=== PATIENT | female | born 1940 | race Caucasian/White ===

== ENCOUNTER 2017-05-07 12:19 | Inpatient (IN) | payer MEDICARE, OTHER ==
--- NOTE | ~2017-05-07 | EGD ---
EGD REPORT [facility] [address] [place]. [address] NAME: RODERICK COLE : 40 STATUS : ADM IN PAT#: [id number] AGE: 77 ADM/REG DATE : 05/07/17 MR#: [id number] REPORT SERV DATE: 05/10/17 DICTATED BY: KAILEY ARAUJO DATE: 05/10/17 REPORT STATUS : Draft TRANSCRIBED BY: [employer] DATE: 05/10/17 [facility]oscopy Center Patient Name: Roderick Cole Date of : 1940 Attending MD: KAILEY ARAJUO, Procedure Date No Time: 05/10/2017 Procedure: Upper GI endoscopy Indications: Anemia, Heme positive stool Referring MD: JIGNA DUCKWORTH Medicines: Propofol per Anesthesia Complications: No immediate complications. Estimated blood loss: None. Procedure: Pre-Anesthesia Assessment: - ASA Grade Assessment: III - A patient with severe systemic disease. After obtaining informed consent, the endoscope was passed under direct vision. Throughout the procedure, the patient's blood pressure, pulse, and oxygen saturations were monitored continuously. The GIF [id number] was introduced through the mouth, and advanced to the second part of duodenum. The upper GI endoscopy was accomplished with ease. The patient tolerated the procedure well. Findings: A hiatus hernia was present. The Z-line was found 36 cm from the incisors. Localized mild inflammation characterized by linear erosions was found in the gastric body. No biopsies or other specimens were collected for this exam. Estimated blood loss: none. Multiple 3 to 5 mm sessile polyps were found in the gastric fundus and in the gastric body. No biopsies or other specimens were collected for this exam. The duodenal bulb and 2nd part of the duodenum were normal. No biopsies or other specimens were collected for this exam. Impression: - Hiatus hernia. - Z-line 36 cm from the incisors. - Gastritis. No specimens collected. - Multiple gastric polyps. No specimens collected. - Normal duodenal bulb and 2nd part of the duodenum. No specimens collected. Recommendation: - Return patient to hospital day for ongoing care. - Perform a colonoscopy. - Continue present medications. EGD REPORT [address] [place]. [address] NAME: RODERICK COLE : 40 STATUS : ADM IN [facility]#: [id number] AGE: 77 ADM/REG DATE : 05/07/17 MR#: [id number] REPORT SERV DATE: 05/10/17 DICTATED BY: KAILEY ARAUJO DATE: 05/10/17 REPORT STATUS : Draft TRANSCRIBED BY: [employer] FRANDY DATE: 05/10/17 - No aspirin, ibuprofen, naproxen, or other non-steroidal anti-inflammatory drugs. - Use Protonix (pantoprazole) 40 mg PO daily. - Regular diet. Procedure Code(s): --- Professional --- 91668, Esophagogastroduodenoscopy, flexible, transoral; diagnostic, including collection of specimen(s) by brushing or washing, when performed (separate procedure) Diagnosis Code(s): --- Professional --- K44.9, Diaphragmatic hernia without obstruction or gangrene K29.70, Gastritis, unspecified, without bleeding K31.7, Polyp of stomach and duodenum D64.9, Anemia, unspecified R19.5, Other fecal abnormalities CPT copyright 2013 [employer]. All rights reserved. The codes documented in this report are preliminary and upon superintendent maintenance review may be revised to meet current compliance requirements. KAILEY ARAUJO, 05/10/2017 10:29 AM This report has been signed electronically. Number of Addenda: 0 Note Initiated On: 05/10/2017 10:16 AM Scope Withdrawal Time 0 hours 0 minutes 0 seconds [address] [place] [address]
--- NOTE | ~2017-05-07 | HP ---
History And Physical [place] [id number] [facility] [place]. [address] NAME: RODERICK WESLEY : [birth year] STATUS : ADM IN [facility]#: [id number] AGE: 77 ADM/REG DATE : 05/07/17 MR#: [id number] REPORT SERV DATE: 05/07/17 DICTATED BY: BRETT BURCH DATE: 05/07/17 REPORT STATUS : Draft TRANSCRIBED BY: MODAiram DATE: 05/07/17 DATE OF ADMISSION: 05/07/2017 HISTORY OF PRESENT ILLNESS: This is a 77-year-old female, who comes in for left leg swelling. The patient is a relatively healthy individual. Denies any heart, lung, brain problems. She went to [place] in early part of April and drove over there from this area to [place]. The patient said that they stopped along the way when they felt like it, but it took more than 10 hours to get there. During that trip, several of her family members had GI symptoms with nausea, vomiting, diarrhea, and abdominal pain. It seems to be self- limited and they got better. The patient then drove the way back here. Since that time, she started having some weakness and she started noting some left leg swelling. She went to her PCP about two weeks prior to admission, where she was found to be anemic. She was started on iron pills and was given guaiac cards. The patient did not note of any hematochezia or melena, and she said that her stool is brown and there is no diarrhea. She does not know the results of the guaiac cards, and she does not know what her counts are for anemia. The patient's then got admitted, and she stayed with him during the admission. While she was in her 's room in the fifth floor of the [facility], the nurse noted that she has a swollen left leg, and she went down to the emergency room. In the ER, they did an ultrasound, which showed extensive left lower extremity DVT extending from the common femoral vein into the greater saphenous vein and below the knee into the peroneal and posterior tibial veins. The ER now calls me for admission. The patient admits to having poor p.o. intake and some weakness, but she attributes it to the stress that she has been having taking care of her in the hospital. She has some nausea, but no vomiting. She denies any active bleeding anywhere. No urinary symptoms. No cough or shortness of breath. No chest pain. She does have some dull ache on the left lower extremity. No near syncopal or syncopal episode and the rest of the 14-point review of systems is negative, except as above. PAST MEDICAL HISTORY: Includes parathyroidectomy, 2/; several basal cell carcinomas removed in the chest area; two back surgeries, care of Dr. Lauren. She did admit that she had an EGD in the past showing some hiatal hernia and a colonoscopy in the past showing only internal hemorrhoids, this was done in [place] more than 10 years ago. The patient has GERD, partial hysterectomy and a tumor removed from her left breast, which was benign, and cholecystectomy. She is an ex-smoker as well. ALLERGIES: SHE HAS NO KNOWN DRUG ALLERGIES. MEDICATIONS: Include aspirin, calcium, Colace, iron, Neurontin, Dumont, Prevacid, fish oil. FAMILY HISTORY: Positive for cancer. Negative for diabetes, heart disease, or lung disease. SOCIAL HISTORY: The patient does not smoke, drink, or use recreational drugs. PHYSICAL EXAMINATION: GENERAL: The patient is alert and oriented x3, not in cardiopulmonary distress. VITAL SIGNS: Include a temperature of 98, pulse rate of 104, respirations of 18, saturating History And Physical [address] [address] NAME: RODERICK WESLEY : 40 STATUS : ADM IN [facility]#: [id number] AGE: 77 ADM/REG DATE : 05/07/17 MR#: [id number] REPORT SERV DATE: 05/07/17 DICTATED BY: BRETT BURCH DATE: 05/07/17 REPORT STATUS : Draft TRANSCRIBED BY: MODAiram DATE: 05/07/17 at 98% on room air, blood pressure of 152/66. NECK: She has supple neck. No JVD or carotid bruit. No lymphadenopathy. HEENT: [place] conjunctivae. Anicteric sclerae. No pharyngeal erythema. LUNGS: Clear lungs. No rales. No wheezes. CARDIOVASCULAR: Regular rate and rhythm, but tachycardia. No murmurs appreciated. ABDOMEN: Positive bowel sounds. Soft and nontender. No masses. EXTREMITIES: Fair pulses. There is edema on the left lower extremity. No open wound. No tenderness. No erythema. LABORATORY DATA: Reveals a BUN and creatinine of 21 and 1.29, rest of the chemistry is within normal limits. H and H of 7.1 and 24.8 with an MCV of 70.1. INR of 1.2. ASSESSMENT: 1. Left lower extremity deep vein thrombosis. 2. Microcytic anemia with possible GI bleed with history of gastroesophageal reflux disease and hiatal hernia. 3. Possible chronic kidney disease 3. PLAN: The patient does not give a convincing story of a big GI bleed. However, with her positive guaiac and microcytic anemia, we would need to get a GI consult and possible scope. I would also get Vascular Surgery as we might need a Chandana filter and a localized thrombectomy. We will monitor H and H, transfuse as needed. Monitor creatinine. Hold aspirin. I discussed with her the pros and cons of the heparin drip, and we both decided that it might be more advantageous to start the heparin drip right now. If she starts having more anemia or some bleeding, we will stop that and transfuse her. This has been explained to her, and she agreed and understood the plan. HODAN/VALE Brett Burch M.D. / [id number] CC: Robert Plasencia M.D.
--- NOTE | ~2017-05-07 | EHP ---
ER History and Physical [place] [address] [facility] [place]. [address] NAME: RODERICK CAN : 40 STATUS : ADM IN PAT#: [id number] AGE: 77 ADM/REG DATE : 05/07/17 MR#: [id number] REPORT SERV DATE: 05/07/17 DICTATED BY: CHELITA MORA DATE: 05/07/17 REPORT STATUS : Draft TRANSCRIBED BY: MODL DATE: 05/07/17 REASON FOR CONSULT: Left leg DVT. HISTORY: The patient is a 77-year-old white female, who endorses swelling for approximately the last three to four weeks. She did have a long car ride that she underwent in early April, had some swelling around that time. The swelling recently got worse. She was in the hospital for a family member and was noted to have a swollen leg, was sent down to the ER for further evaluation and found to have extensive DVT. She denies chest pain or shortness of breath. She denies history of DVT in the past. She denies any cheikh overt bleeding from any orifice. PAST MEDICAL HISTORY: Includes negative history of hypertension, renal disease, diabetes. PAST SURGICAL HISTORY: Includes parathyroidectomy as well as several basal cell carcinomas removed and she has had two back surgeries with Dr. Lauren. ALLERGIES: SHE HAS NO ALLERGIES. MEDICATIONS: Are listed in our MAR. She is not currently on any anticoagulation as an outpatient. She is on a heparin drip here as an inpatient. FAMILY HISTORY: Positive for cancer. SOCIAL HISTORY: She does not currently abuse tobacco. PHYSICAL EXAMINATION: VITAL SIGNS: Blood pressure is 155/68, heart rate is 94, respirations 18. GENERAL APPEARANCE: She is in no distress. Her pupils are equally round and reactive to light. HEENT: Her head is normocephalic, atraumatic. NECK: Supple without JVD or lymphadenopathy. CHEST: Has equal expansion bilaterally with good respiratory movement. ABDOMEN: Soft, nontender, nondistended without any obvious masses. CARDIOVASCULAR: Regular rate and rhythm. Peripheral pulses are palpable x4. She does have swelling throughout the left lower extremity, greater below the knee than above the knee. All compartments are soft and easily compressible. There is no sign of phlegmasia or compartment syndrome. LABORATORY DATA: Her creatinine is 1.29; her hematocrit is 25, this is up from earlier at 24.8. She does have a history of having microcytic anemia being worked up as an outpatient. Imaging evaluation includes ultrasound, which demonstrated DVT from the common femoral down through the saphenous vein and into the tibial veins. IMPRESSION AND PLAN: Ms. Can is 77 years with left leg deep vein thrombosis of approximately three weeks to four weeks' duration. She is currently on a heparin drip for the DVT. We will see how her hematocrit holds up. She is getting GI evaluation for her microcytic anemia. If her GI bleeding worsens or is exacerbated, she certainly will require ER History and Physical [address] [address] NAME: RODERICK CAN : 40 STATUS : ADM IN [facility]#: [id number] AGE: 77 ADM/REG DATE : 05/07/17 MR#: [id number] REPORT SERV DATE: 05/07/17 DICTATED BY: CHELITA MORA DATE: 05/07/17 REPORT STATUS : Draft TRANSCRIBED BY: VALE DATE: 05/07/17 IVC filter if she has to come off anticoagulation. Otherwise, there is no indication for surgical treatment of the clot at this time. Her left leg does not have phlegmasia and the clot is of three to four weeks' duration, which makes it more difficult to remove percutaneously. I will follow with her while she is here to see how her anticoagulation and her hematocrit do. BRIAN/VALE Chelita Mora MD / [id number] CC: Franco Harris M.D. JIGNA DUCKWORTH
--- NOTE | ~2017-05-07 | EGD ---
EGD REPORT [facility] [address] [place]. [address] NAME: RODERICK COLE : 40 STATUS : ADM IN PAT#: [id number] AGE: 77 ADM/REG DATE : 05/07/17 MR#: [id number] REPORT SERV DATE: 05/10/17 DICTATED BY: KAILEY ARAUJO DATE: 05/10/17 REPORT STATUS : Draft TRANSCRIBED BY: [employer] DATE: 05/10/17 Endoscopy Center Patient Name: Roderick Cole Date of : 1940 Attending MD: KAILEY ARAUJO, Procedure Date No Time: 05/10/2017 Procedure: Colonoscopy Indications: Heme positive stool, Anemia Referring MD: JIGNA DUCKWORTH Medicines: Propofol per Anesthesia Complications: No immediate complications. Estimated blood loss: None. Procedure: Pre-Anesthesia Assessment: - ASA Grade Assessment: III - A patient with severe systemic disease. After I obtained informed consent, the scope was passed under direct vision. Throughout the procedure, the patient's blood pressure, pulse, and oxygen saturations were monitored continuously. The CF [id number] was introduced through the anus and advanced to the cecum, identified by appendiceal orifice and ileocecal valve. The colonoscopy was performed with ease. The patient tolerated the procedure well. The quality of the bowel preparation was good. Findings: A few small-mouthed diverticula were found in the sigmoid colon. The exam was otherwise without abnormality on direct and retroflexion views. Impression: - Diverticulosis in the sigmoid colon. - The examination was otherwise normal on direct and retroflexion views. Recommendation: - Return patient to hospital day for ongoing care. - Regular diet. - Continue present medications. Procedure Code(s): --- Professional --- 29396, Colonoscopy, flexible, proximal to splenic flexure; diagnostic, with or without collection of specimen(s) by brushing or washing, with or without colon decompression (separate procedure) Diagnosis Code(s): --- Professional --- K57.30, Diverticulosis of large intestine without EGD REPORT [facility] [address] [place] [address]. [address] NAME: RODERICK COLE : 40 STATUS : ADM IN [facility]#: [id number] AGE: 77 ADM/REG DATE : 05/07/17 MR#: [id number] REPORT SERV DATE: 05/10/17 DICTATED BY: KAILEY ARAUJO DATE: 05/10/17 REPORT STATUS : Draft TRANSCRIBED BY: [facility] DATE: 05/10/17 perforation or abscess without bleeding R19.5, Other fecal abnormalities D64.9, Anemia, unspecified CPT copyright 2013 [employer]. All rights reserved. The codes documented in this report are preliminary and upon cpc coder review may be revised to meet current compliance requirements. KAILEY ARAUJO, 05/10/2017 10:53 AM This report has been signed electronically. Number of Addenda: 0 Note Initiated On: 05/10/2017 10:13 AM Scope Withdrawal Time 0 hours 9 minutes 1 second [id number] [address]
--- NOTE | ~2017-05-07 | DS ---
Discharge Summary [facility] [address] [place]. [address] NAME: RODERICK WESLEY : 40 STATUS : DIS IN PAT#: [id number] AGE: 77 ADM/REG DATE : 05/07/17 MR#: [id number] REPORT SERV DATE: 05/12/17 DICTATED BY: DEJUAN EVANS DATE: 05/11/17 REPORT STATUS : Draft TRANSCRIBED BY: MODL DATE: 05/11/17 ADMISSION DATE: 05/07/2017 DISCHARGE DATE: 05/11/2017 DISCHARGE DIAGNOSES: 1. Extensive left lower extremity deep vein thrombosis. 2. Iron deficiency anemia with iron 15, TIBC 414, ferritin 11. 3. Hemoccult positive stool with upper GI endoscopy, 05/10/2017, Dr. Tineo, showing hiatal hernia, gastritis, multiple gastric polyps, and normal duodenal bulb and second part of duodenum. Colonoscopy 05/10/2017, Dr. Tineo, demonstrating diverticulosis. 4. Acute kidney injury, present on admission, resolved. 5. Chronic pain syndrome related to two previous back surgeries. 6. History of hyperparathyroidism, status post parathyroidectomy. 7. History of basal cell carcinomas. 8. History of gastroesophageal reflux disease. OPERATIVE PROCEDURES: None. PRESENT ILLNESS: This is a 77-year-old white female who was triaged in the emergency room on 05/07/2017 at 0959 hours, complaining of left lower extremity swelling and pain of 3 weeks' duration. Her ER evaluation included a CBC, which was abnormal for hemoglobin of 7.1. In addition, a left lower extremity ultrasound was performed, which showed extensive left lower extremity DVT extending from the common femoral vein into the greater saphenous vein and below-knee into the peroneal and posterior tibial veins. She was referred to the Hospitalist Service for admission. She was seen by Dr. Minh Irizarry and admitted as described on admission history and physical examination. ADDITIONAL HISTORY: Per Dr. Irizarry. PHYSICAL EXAMINATION: Per Dr. Irizarry. ADMISSION LABORATORY: Per Dr. Irizarry. HOSPITAL COURSE: She was admitted by Dr. Iriazrry with: 1. Left lower extremity DVT. 2. Microcytic anemia with possible GI bleed and a remote history of gastroesophageal reflux disease and hiatal hernia. 3. Possible chronic kidney disease. On admission, she was started on heparin. GI consultation was obtained. Vascular Surgery consultation was obtained. She was seen by Dr. Rohith Tabares, who recommended upper GI endoscopy and colonoscopy. Discharge Summary [facility] [address] [place]. [address] NAME: RODERICK WESLEY : 40 STATUS : DIS IN PAT#: [id number] AGE: 77 ADM/REG DATE : 05/07/17 MR#: [id number] REPORT SERV DATE: 05/12/17 DICTATED BY: DEJUAN EVANS DATE: 05/11/17 REPORT STATUS : Draft TRANSCRIBED BY: VALE DATE: 05/11/17 She was seen by Dr. Stephen Mora. He did not think that she needed an IVC filter unless she had worsening gastrointestinal bleeding or if she had to stop anticoagulation for some other reason. He also did not think there was indication for surgical treatment as she did not have phlegmasia and her clot was likely of 3 to 4 weeks' duration. With heparin anticoagulation, she did not have any evident gastrointestinal bleeding. Her hemoglobin which was 7.1 on admission, fell to 6.7. She received 2 units of packed red blood cells on 05/08/2017, and her hemoglobin increased to 10 with subsequent hemoglobins being 9.3, 9.3, and 9.9. On 05/10/2017, she was taken to the GI lab where the above-mentioned procedures were performed. PPI therapy was recommended. NSAIDs were proscribed. There were no complications with the procedure. Her diet was advanced, which she tolerated well. Her creatinine was 1.29 on admission, increased to 1.31, it was 0.99 at discharge. She was seen by Dr. Irizarry through 05/10/2017. She was seen by the undersigned today. She was asymptomatic. She thought she could manage at home. She is being discharged home to be seen by her primary care physician, Dr. Shayne Ortega next week. I suggested to her that she have age-appropriate cancer screening in the outpatient setting to include a pelvic exam. I also suggested that if she had not had a recent chest x ray, this should be pursued with consideration of a CT chest given her smoking history and DVT presentation. We discussed her current anticoagulation which is Xarelto. She was advised if she had any mucosal bleeding, she would need to have a site-specific evaluation and she should contact her primary care physician. If her hemoglobin is not iron responsive or she has further gastrointestinal bleeding, she will need to have further GI evaluation including capsule endoscopy, etc. She will continue her home diet and activity. DISCHARGE MEDICATIONS: Pending outpatient followup: Neurontin 300 mg twice daily; [place] 7.5/325 twice daily; fish oil 1000 mg twice daily; Xarelto 15 mg twice daily for 21 days, then 20 mg daily; Os-Nikolai plus D 500 mg daily; Prevacid 30 mg daily; Colace 200 mg at bedtime; 200 mg twice daily. Discharge time, greater than 30 minutes. DICTATED BY: Dejuan Evans M.D. Discharge Summary [place] [id number] [place]. [address] NAME: RODERICK WESLEY : 40 STATUS : DIS IN PAT#: [id number] AGE: 77 ADM/REG DATE : 05/07/17 MR#: [id number] REPORT SERV DATE: 05/12/17 DICTATED BY: DEJUAN EVANS DATE: 05/11/17 REPORT STATUS : Draft TRANSCRIBED BY: VALE DATE: 05/11/17 DD/VALE Dejuan Evans M.D. / [id number] CC: Robert Ray M.D. Camille Sommer, MD
--- NOTE | ~2017-05-07 | CN ---
Consultation Report [facility] [address] [place]. [address] NAME: RODERICK WESLEY : 40 STATUS : ADM IN PAT#: [id number] AGE: 77 ADM/REG DATE : 05/07/17 MR#: [id number] REPORT SERV DATE: 05/08/17 DICTATED BY: ROHITH TABARES DATE: 05/08/17 REPORT STATUS : Draft TRANSCRIBED BY: MODL DATE: 05/08/17 CONSULTATION DATE OF CONSULTATION: 05/08/2017 INDICATION: The patient is presenting with severe anemia with guaiac-positive stool. HISTORY OF PRESENT ILLNESS: The patient is a 77-year-old female, who has been experiencing left leg swelling for the last three weeks with cramps, dullness, and heaviness. Right leg was entirely normal. She ambulates well at home. Prior to this incident her walking has decreased because of the discomfort. The patient denies any melena, hematochezia, or hematemesis. There was some history of weakness. When she presented to the hospital, the patient was found to be anemic with guaiac-positive stool. Heparin has been started to treat the DVT which was detected on exam. PAST MEDICAL HISTORY: Gastroesophageal reflux disease. PAST SURGICAL HISTORY: Several basal cell carcinoma removed from the chest area, two back surgeries, partial hysterectomy, tumor removed from left breast, and cholecystectomy. MEDICATIONS: See MAR. PHYSICAL EXAMINATION: GENERAL: Well-developed, well-nourished female, in no acute distress. VITAL SIGNS: Temperature is 97.1, blood pressure 138/65, pulse of 83. HEENT: Head is normocephalic and atraumatic. Throat is clear. LUNGS: Clear. HEART: S1 and S2 without murmurs, gallops, or rubs. ABDOMEN: Normoactive bowel sounds. Soft, nondistended, and nontender. EXTREMITIES: Moderate swelling of the left leg with 2+ edema. Right leg appears normal. LABORATORY DATA: WBC of 6.4, H and H of 6.7 and 23.4, platelet count 391. Currently, the patient is receiving packed red blood cells. Sodium 143, potassium 3.9, BUN 17, creatinine 1.3. Ferritin level is 11, iron 15, and TIBC 414. IMPRESSION: The patient with iron deficiency anemia with guaiac-positive stool, now on heparin drip. PLAN: We will proceed with panendoscopy and colonoscopy on Wednesday. Stop the heparin eight hours prior to procedure. HP/MODL Consultation Report [place] [id number] [place] [address] [address] NAME: RODERICK WESLEY : 40 STATUS : ADM IN PAT#: [id number] AGE: 77 ADM/REG DATE : 05/07/17 MR#: [id number] REPORT SERV DATE: 05/08/17 DICTATED BY: ROHITH TABARES DATE: 05/08/17 REPORT STATUS : Draft TRANSCRIBED BY: VALE DATE: 05/08/17 Rohith Tabares M.D. / [id number] CC: Robert Plasencia M.D.
[2017-05-07 11:31] LABS: BASOPHILS 0.5 %; BASOPHILS ABSOLUTE 0.03 10/3/uL (0.0-0.16); EOSINOPHILS 3.7 %; EOSINOPHILS ABSOLUTE 0.24 10/3/uL (0.0-0.53); HEMATOCRIT 24.8 % (36.0-48.0); HEMOGLOBIN 7.1 g/dL (12.0-16.0); IMMATURE GRANULOCYTES 0.3 %; IMMATURE GRANULOCYTES ABSOLUTE 0.02 10/3/uL (0.0-0.11); LYMPHOCYTES 24.5 %; LYMPHOCYTES ABSOLUTE 1.57 10/3/uL (0.67-4.30); MEAN CORPUS HGB CONC 28.6 g/dL (32.0-36.0); MEAN CORPUSCULAR HEMOGLOB 20.1 pg (26.0-34.0); MEAN CORPUSCULAR VOLUME 70.1 fL (80-100); MONOCYTES 7.3 %; MONOCYTES ABSOLUTE 0.47 10/3/uL (0.21-1.20); NEUTROPHILS 63.7 %; NEUTROPHILS ABSOLUTE 4.08 10/3/uL (2.02-8.40); RED CELL COUNT 3.54 10/6/uL (4.0-5.6); WHITE BLOOD CELLS 6.4 10/3/uL (4.5-10.5)
[2017-05-07 11:32] LABS: MANUAL DIFF NO %; PLATELET COUNT 391 10/3/uL (150-400); RBC DISTRIBUTION WIDTH 19.1 % (12.0-16.0)
[2017-05-07 11:40] LABS: INTERNATIONAL NORMAL RATI 1.2 UNITS (-); PARTIAL THROMBO TIME 28.5 SEC (22.5-37.2); PROTIME (NOT ORD) 14.7 SEC (12.0-14.5)
[2017-05-07 11:48] LABS: ALBUMIN 3.6 G/DL (3.5-5.0); ALKALINE PHOSPHATASE 79 U/L (45-117); BUN (BLOOD UREA NITROGEN) 21 MG/DL (6-23); CALCIUM, SERUM 8.5 MG/DL (8.5-10.4); CHLORIDE, SERUM 110 MMOL/L (96-112); CO2 (CARBON DIOXIDE) 25 MMOL/L (24-34); CREATININE 1.29 MG/DL (0.55-1.02); GFR AFRICAN AMERICAN 46 ML/MIN (>=60); GFR NON AFRICAN AMERICAN 40 ML/MIN (>=60); GLOBULIN 3.7 G/DL (2.5-4.1); GLUCOSE, SERUM 124 MG/DL (60-99); POTASSIUM, SERUM 3.9 MMOL/L (3.5-5.3); SGOT(AST) 14 U/L (5-40); SGPT(ALT) 16 U/L (5-65); SODIUM, SERUM 144 MMOL/L (135-148); TOTAL BILIRUBIN 0.2 MG/DL (0-1.2); TOTAL PROTEIN 7.3 G/DL (6.0-8.5)
[2017-05-07 11:53] LABS: ANISOCYTOSIS 1+ (5-10/OIF) (0-5/OIF); HYPOCHROMIA 3+ (>30/OIF) (0-2/OIF); PLATELET ESTIMATE ADQ (ADEQUATE)
[2017-05-07 11:54] LABS: ELLIPTOCYTES 1+ (3-10/OIF) (0-2/OIF); POIKILOCYTOSIS 1+ (5-10/OIF) (0-5/OIF)
[~2017-05-07 12:19] MED LIST: ASAB PO; FISH-EPA1000 MG PO; FOSAMAX70 MG PO; LIOR10 PO; MSCONT15 PO; NASONEX NAS; NEUR300 PO; OS500+D PO; PCET PO; PREV30 PO; ULTRAM50 PO; V5 PO; VITAMIN D PO; VITAMIN D31000 UNIT PO
[2017-05-07] MEDS ORDERED: OS500+D PO (12:34)
[2017-05-07] MEDS ORDERED: PREV30 PO (12:36)
[2017-05-07] MEDS ORDERED: NORCO1 TA2 PO (12:37)
[2017-05-07] MEDS ORDERED: FISH-EPA1000 MG PO (12:37)
[2017-05-07] MEDS ORDERED: EZFE 200200 MG PO (12:38)
[2017-05-07] MEDS ORDERED: NEUR300 PO (12:38)
[2017-05-07] MEDS ORDERED: HALF81 PO (12:38)
[2017-05-07] MEDS ORDERED: DSS PO (12:38)
[2017-05-07 16:36] LABS: HEMATOCRIT 25.3 % (36.0-48.0); HEMOGLOBIN 7.1 g/dL (12.0-16.0); RETICULOCYTE COUNT 1.9 % (0.5-2.5); RETICULOCYTE COUNT ABSOLUTE 69.1 10/3/uL (20.2-119.8)
[2017-05-07 16:50] LABS: PHOSPHORUS, SERUM 2.6 MG/DL (2.5-4.5)
[2017-05-08 05:14] LABS: HEMATOCRIT 23.4 % (36.0-48.0)
[2017-05-08 05:15] LABS: HEMOGLOBIN 6.7 g/dL (12.0-16.0)
[2017-05-08 05:27] LABS: CALCIUM, SERUM 8.4 MG/DL (8.5-10.4); CHLORIDE, SERUM 111 MMOL/L (96-112); CO2 (CARBON DIOXIDE) 23 MMOL/L (24-34); CREATININE 1.31 MG/DL (0.55-1.02); GFR AFRICAN AMERICAN 45 ML/MIN (>=60); GFR NON AFRICAN AMERICAN 39 ML/MIN (>=60); POTASSIUM, SERUM 3.9 MMOL/L (3.5-5.3); SODIUM, SERUM 143 MMOL/L (135-148)
[2017-05-08 05:30] LABS: BUN (BLOOD UREA NITROGEN) 17 MG/DL (6-23); GLUCOSE, SERUM 97 MG/DL (60-99)
[2017-05-08 05:32] LABS: PARTIAL THROMBO TIME 130.7 SEC (22.5-37.2)
[2017-05-08 18:58] LABS: HEMATOCRIT 32.2 % (36.0-48.0)
[2017-05-09 01:33] LABS: HEMATOCRIT 30.6 % (36.0-48.0); HEMOGLOBIN 9.3 g/dL (12.0-16.0)
[2017-05-10 03:36] LABS: BASOPHILS 0.5 %; BASOPHILS ABSOLUTE 0.04 10/3/uL (0.0-0.16); EOSINOPHILS 3.4 %; EOSINOPHILS ABSOLUTE 0.25 10/3/uL (0.0-0.53); HEMATOCRIT 31.6 % (36.0-48.0); HEMOGLOBIN 9.3 g/dL (12.0-16.0); IMMATURE GRANULOCYTES 0.3 %; IMMATURE GRANULOCYTES ABSOLUTE 0.02 10/3/uL (0.0-0.11); LYMPHOCYTES 44.3 %; LYMPHOCYTES ABSOLUTE 3.26 10/3/uL (0.67-4.30); MEAN CORPUS HGB CONC 29.4 g/dL (32.0-36.0); MEAN PLATELET VOLUME 9.1 fL (9.2-13.0); MONOCYTES 7.9 %; MONOCYTES ABSOLUTE 0.58 10/3/uL (0.21-1.20); NEUTROPHILS 43.6 %; NEUTROPHILS ABSOLUTE 3.21 10/3/uL (2.02-8.40); PLATELET COUNT 352 10/3/uL (150-400); RBC DISTRIBUTION WIDTH 20.6 % (12.0-16.0); RED CELL COUNT 4.13 10/6/uL (4.0-5.6); WHITE BLOOD CELLS 7.4 10/3/uL (4.5-10.5)
[2017-05-10 03:38] LABS: MANUAL DIFF NO %; MEAN CORPUSCULAR HEMOGLOB 22.5 pg (26.0-34.0); MEAN CORPUSCULAR VOLUME 76.5 fL (80-100)
[2017-05-10 03:46] LABS: PARTIAL THROMBO TIME 109.3 SEC (22.5-37.2)
[2017-05-10 03:50] LABS: CHLORIDE, SERUM 114 MMOL/L (96-112); CO2 (CARBON DIOXIDE) 26 MMOL/L (24-34); CREATININE 0.99 MG/DL (0.55-1.02); GFR AFRICAN AMERICAN 64 ML/MIN (>=60); GFR NON AFRICAN AMERICAN 55 ML/MIN (>=60); GLUCOSE, SERUM 93 MG/DL (60-99); SODIUM, SERUM 146 MMOL/L (135-148)
[2017-05-10 03:52] LABS: BUN (BLOOD UREA NITROGEN) 10 MG/DL (6-23)
[2017-05-11 06:43] LABS: BASOPHILS 0.7 %; EOSINOPHILS 3.7 %; EOSINOPHILS ABSOLUTE 0.2 10/3/uL (0.0-0.5); HEMATOCRIT 31.8 % (36.0-48.0); HEMOGLOBIN 9.9 g/dL (12.0-16.0); LYMPHOCYTES 44.7 %; LYMPHOCYTES ABSOLUTE 2.9 10/3/uL (0.7-4.3); MANUAL DIFF NO %; MEAN CORPUS HGB CONC 31.2 g/dL (32.0-36.0); MEAN CORPUSCULAR HEMOGLOB 22.5 pg (26.0-34.0); MEAN CORPUSCULAR VOLUME 72.1 fL (80-100); MEAN PLATELET VOLUME 8.2 fL (6.8-10.8); MONOCYTES 10.1 %; MONOCYTES ABSOLUTE 0.6 10/3/uL (0.2-1.2); NEUTROPHILS 40.8 %; NEUTROPHILS ABSOLUTE 2.6 10/3/uL (2.0-8.4); PLATELET COUNT 350 10/3/uL (150-400); RBC DISTRIBUTION WIDTH 23.4 % (12.0-16.0); RED CELL COUNT 4.41 10/6/uL (4.0-5.6); WHITE BLOOD CELLS 6.4 10/3/uL (4.5-10.5)
[2017-05-11 08:03] LABS: HYPOCHROMIA 1+ (3-10/OIF) (0-2/OIF); PLATELET ESTIMATE ADQ (ADEQUATE); POLYCHROMASIA 1+ (2-5/OIF) (0-1/OIF); TEARDROP SHAPED RBCS FEW (3-10/OIF)
[2017-05-11] MEDS ORDERED: XARELTO20 MG (16:04)
== END 2017-05-11 17:42 | disposition home or self-care (01) | DRG 300 ==
LOC: ER 12:19 → 6NO 13:42
PROVIDERS: Internal Medicine; Internal Medicine Gastroenterology; Nurse Practitioner
PROC: 30233N1 Transfusion of Nonautologous Red Blood Cells into Peripheral Vein, Percutaneous Approach (ICD-10-PCS; 2017-05-08)
PROC: 0DJD8ZZ Inspection of Lower Intestinal Tract, Via Natural or Artificial Opening Endoscopic (ICD-10-PCS; principal; 2017-05-10 10:20)
PROC: 0DJ08ZZ Inspection of Upper Intestinal Tract, Via Natural or Artificial Opening Endoscopic (ICD-10-PCS; 2017-05-10 10:20)
DX: I82.412 Acute embolism and thrombosis of left femoral vein (principal); N17.9 Acute kidney failure, unspecified; D50.9 Iron deficiency anemia, unspecified; K31.7 Polyp of stomach and duodenum; K21.9 Gastro-esophageal reflux disease without esophagitis; K44.9 Diaphragmatic hernia without obstruction or gangrene; K29.70 Gastritis, unspecified, without bleeding; K57.30 Diverticulosis of large intestine without perforation or abscess without bleeding; G89.4 Chronic pain syndrome; R19.5 Other fecal abnormalities; N18.9 Chronic kidney disease, unspecified; K64.8 Other hemorrhoids; Z85.828 Personal history of other malignant neoplasm of skin; Z90.49 Acquired absence of other specified parts of digestive tract; Z90.710 Acquired absence of both cervix and uterus
CPT/HCPCS: 36415; 80048; 80053; 82728; 83540; 83550; 83735; 84100; 85014; 85018; 85025; 85045; 85610; 85730; 86850; 86900; 86901; 86920; 93005; 93971; 96365; 99285; A9270-GY; C9113; P9016